=== PATIENT | female | born 1990 | race Native Hawaiian/Other Pacific Islander ===

== ENCOUNTER 2018-01-24 02:37 | Emergency (ER) | payer OTHER ==
[~2018-01-24] VITALS: Ht 152.4 cm; Wt 54.4 kg
[2018-01-24 04:28] VITALS: TEMP 98.3
[2018-01-24 04:28] LABS: PLATELET COUNT 254 K/uL (152-353)
[2018-01-24 04:36] LABS: POTASSIUM 3.4 mmol/L (3.6-5.2); SODIUM 137 mmol/L (136-145)
[2018-01-24 07:40] VITALS: BP 118/78
== END 2018-01-24 07:41 | disposition home or self-care (01) ==
LOC: ED 02:37
PROVIDERS: Emergency Medicine
DX: R07.89 Other chest pain (principal); D72.829 Elevated white blood cell count, unspecified; R10.9 Unspecified abdominal pain; F41.9 Anxiety disorder, unspecified; R00.0 Tachycardia, unspecified
CPT/HCPCS: 36415; 80053; 81025; 82150; 82550; 82553; 83690; 84484; 85027; 85379; 96374; 99284; J1885; Q9963

== ENCOUNTER 2021-07-31 00:12 | Emergency (ER) | payer OTHER ==
[~2021-07-31] VITALS: Ht 152.4 cm; Wt 49.4 kg
[2021-07-31 01:02] LABS: PLATELET COUNT 241 K/uL (152-353)
[2021-07-31 01:10] LABS: POTASSIUM 3.3 mmol/L (3.6-5.2)
[2021-07-31 03:55] VITALS: BP 110/66; TEMP 98.1
== END 2021-07-31 04:00 | disposition home or self-care (01) ==
LOC: ED 00:12
PROVIDERS: Emergency Medicine
DX: R10.32 Left lower quadrant pain (principal)
CPT/HCPCS: 36415; 80053; 81000; 81025; 85027; 87210; 87490; 87590; 96360; 96361; 96375; 99284; J2270

== ENCOUNTER 2022-02-10 10:55 | Outpatient (CLI) | payer OTHER | END 2022-02-10 18:56 | disposition home or self-care (01) | LOC: LABW 10:55 | PROVIDERS: ATTEND Nurse Practitioner Family | DX: N92.5 Other specified irregular menstruation (principal) | CPT/HCPCS: 36415; 84702 ==